=== PATIENT | male | born 1970 | race Caucasian/White ===

== ENCOUNTER 2017-08-04 13:25 | Emergency (ER) | payer SELFPAY ==
[~2017-08-04] VITALS: Ht 170.2 cm; Wt 72.7 kg
[2017-08-04 14:45] VITALS: BP 143/91
== END 2017-08-04 14:50 | disposition home or self-care (01) ==
LOC: EMS 13:31
DX: M54.5 Low back pain (principal); M79.1 Myalgia; R03.0 Elevated blood-pressure reading, without diagnosis of hypertension
CPT/HCPCS: 99283